=== PATIENT | male | born 1985 | race Hispanic/Latino ===

== ENCOUNTER 2021-04-25 16:07 | Emergency (ER) | payer BC ==
[~2021-04-25] VITALS: Ht 172.7 cm; Wt 88.5 kg
[2021-04-25] MEDS ORDERED: ACETAMINOPHEN 325 MG TAB PO ONE (16:30)
[2021-04-25] MEDS ORDERED: IBUPROFEN 400 MG TAB PO ONE (16:30)
[2021-04-25 16:39] LABS: BASOPHILS % 0.2 % (0.0-1.0); HEMATOCRIT 47.2 % (38.2-49.6); HEMOGLOBIN 15.9 g/dL (14.0-18.0); LYMPHOCYTES % 11.7 % (18.0-39.1); MEAN CORPUSCULAR HEMOGLOBIN 30.3 pg (28-32); MEAN CORPUSCULAR HGB CONC 33.7 g/dL (31-35); MEAN CORPUSCULAR VOLUME 90.1 fL (81-99); MONOCYTES # (AUTO) 0.3 (0.2-0.8); MONOCYTES % 3.2 % (4.4-11.3); NEUTROPHILS # (AUTO) 6.9 (2.1-6.9); NEUTROPHILS % 84.5 % (38.7-80.0); PLATELET COUNT 207 x10e3/uL (140-360); RED BLOOD COUNT 5.24 x10e6/uL (4.3-5.7); RED CELL DISTRIBUTION WIDTH 13.2 % (11.7-14.4)
[2021-04-25 17:23] LABS: ALBUMIN 3.3 g/dL (3.5-5.0); ALBUMIN/GLOBULIN RATIO 0.8 (0.8-2.0); ANION GAP 16.6 mmol/L (8-16); CREATININE, SERUM 0.75 mg/dL (0.72-1.25); POTASSIUM 3.6 mmol/L (3.5-5.1)
[2021-04-25] MEDS ORDERED: SODIUM CHLORIDE 0.9% 1000ML 1,000 ML IV STA (17:29)
[2021-04-25] MEDS ORDERED: CEFTRIAXONE 1 GM in SODIUM CHLORIDE 0.9% 50ML 50 ML IV ONE (17:45)
[2021-04-25] MEDS ORDERED: DEXAMETHASONE SOD PHOS 10 MG/1 ML VIAL IV ONE (17:45)
[2021-04-25] MEDS ORDERED: CEFTRIAXONE 1 GM VIAL ONE (18:11)
[2021-04-25] MEDS ORDERED: DEXAMETHASONE4 MG PO (19:04)
[2021-04-25] MEDS ORDERED: PROVENTIL HFA6.7 GM INH (19:04)
[2021-04-25] MEDS ORDERED: AZITHROMYCIN250 MG PO (19:04)
[2021-04-25 19:31] VITALS: BP 125/81
== END 2021-04-25 19:39 | disposition home or self-care (01) ==
LOC: ER 16:20
DX: U07.1 COVID-19 (principal); J18.9 Pneumonia, unspecified organism; R09.02 Hypoxemia; R50.9 Fever, unspecified; R05 Cough
CPT/HCPCS: 36415; 71045; 80053; 85025; 87040; 99284; J0696; J1100; J7030; U0002